=== PATIENT | male | born 1945 | race Caucasian/White ===

== ENCOUNTER → 2018-09-03 | Outpatient (CLI) | payer OTHER | LOC: RAD 11:18 | DX: R91.8 Other nonspecific abnormal finding of lung field (principal); Q25.46 Tortuous aortic arch ==

== ENCOUNTER → 2019-11-02 | Outpatient (CLI) | payer OTHER | LOC: SJCVCIMAG 08:58 | PROVIDERS: ATTEND Internal Medicine Cardiovascular Disease | DX: I08.2 Rheumatic disorders of both aortic and tricuspid valves (principal); I11.9 Hypertensive heart disease without heart failure; E78.00 Pure hypercholesterolemia, unspecified ==

== ENCOUNTER → 2020-08-01 | Outpatient (CLI) | payer OTHER | LOC: SJCVC 12:54 | PROVIDERS: ATTEND Internal Medicine Cardiovascular Disease | DX: R94.31 Abnormal electrocardiogram [ECG] [EKG] (principal); I10 Essential (primary) hypertension; E78.00 Pure hypercholesterolemia, unspecified; I87.2 Venous insufficiency (chronic) (peripheral); E66.9 Obesity, unspecified; Z98.890 Other specified postprocedural states; Z79.899 Other long term (current) drug therapy; Z86.16 Personal history of COVID-19; Z86.79 Personal history of other diseases of the circulatory system; Z82.49 Family history of ischemic heart disease and other diseases of the circulatory system ==

== ENCOUNTER → 2020-08-08 | Outpatient (CLI) | payer OTHER | LOC: SJCVC 11:58 | PROVIDERS: ATTEND Nurse Practitioner Adult Health | DX: I44.0 Atrioventricular block, first degree (principal); R00.1 Bradycardia, unspecified; R94.31 Abnormal electrocardiogram [ECG] [EKG]; I10 Essential (primary) hypertension; E78.00 Pure hypercholesterolemia, unspecified; I87.2 Venous insufficiency (chronic) (peripheral); I38 Endocarditis, valve unspecified; E78.5 Hyperlipidemia, unspecified; E66.9 Obesity, unspecified; Z79.899 Other long term (current) drug therapy; Z82.49 Family history of ischemic heart disease and other diseases of the circulatory system ==

== ENCOUNTER → 2021-07-01 | Outpatient (CLI) | payer OTHER | LOC: SJCVCIMAG 06-12 09:18 | PROVIDERS: ATTEND Internal Medicine Cardiovascular Disease | DX: I10 Essential (primary) hypertension (principal); E78.5 Hyperlipidemia, unspecified ==